=== PATIENT | female | born 1940 | race Caucasian/White ===

== ENCOUNTER 2019-04-01 06:18 | Emergency (ER) | payer OTHER ==
[~2019-04-01] VITALS: Ht 162.6 cm; Wt 54.5 kg
--- NOTE | 2019-04-01 06:31 | NUR ---
PATIENT STATES SHE IS HAVING SEVERE PAIN IN LOWER BACK AND RIGHT LEG RATED 10/10. STATES SHE HAS HX COMPRESSION FX.
[2019-04-01] MEDS ORDERED: ketorolac trometh inj. 60 MG/2 ML VIAL IM ONE (06:40)
[2019-04-01] MEDS ORDERED: orphenadrine citrate 60mg/2ml inj. IM ONE (06:40)
[2019-04-01 07:37] VITALS: BP 182/112
== END 2019-04-01 08:58 | disposition home or self-care (01) ==
LOC: ER 06:20
DX: S32.048A Other fracture of fourth lumbar vertebra, initial encounter for closed fracture (principal); I10 Essential (primary) hypertension; F41.9 Anxiety disorder, unspecified; F17.200 Nicotine dependence, unspecified, uncomplicated; Z88.6 Allergy status to analgesic agent; X58.XXXA Exposure to other specified factors, initial encounter; Y93.89 Activity, other specified; Y92.89 Other specified places as the place of occurrence of the external cause; Y99.8 Other external cause status
CPT/HCPCS: 96372; 99284; J1885; J2360